=== PATIENT | female | born 1995 | race Caucasian/White ===

== ENCOUNTER 2022-10-20 10:46 | Emergency (ER) | payer OTHER, BC ==
[~2022-10-20] VITALS: Ht 170.2 cm; Wt 61.2 kg
[2022-10-20] MEDS ORDERED: CYCL10 PO ×2 (11:47→12:10)
[2022-10-20] MEDS ORDERED: Norco 5-325 Ta1 EACH PO ×2 (11:47→12:10)
== END 2022-10-20 12:16 | disposition home or self-care (01) ==
LOC: ER 10:46
DX: S16.1XXA Strain of muscle, fascia and tendon at neck level, initial encounter (principal); S29.012A Strain of muscle and tendon of back wall of thorax, initial encounter; V49.9XXA Car occupant (driver) (passenger) injured in unspecified traffic accident, initial encounter; Z88.2 Allergy status to sulfonamides
CPT/HCPCS: 96372; 99283-25; A9270; J1885

== ENCOUNTER 2022-11-12 19:26 | Emergency (ER) | payer OTHER, BC ==
[~2022-11-12] VITALS: Ht 170.2 cm; Wt 63.5 kg
[~2022-11-12 19:26] MED LIST: CYCL10 PO; Norco 5-325 Ta1 EACH PO
== END 2022-11-12 20:07 | disposition home or self-care (01) ==
LOC: ER 19:26
DX: S61.211A Laceration without foreign body of left index finger without damage to nail, initial encounter (principal); F17.200 Nicotine dependence, unspecified, uncomplicated; Z88.2 Allergy status to sulfonamides; W26.0XXA Contact with knife, initial encounter; Y99.0 Civilian activity done for income or pay
CPT/HCPCS: 12001; 99282-25

== ENCOUNTER 2022-12-23 11:58 | Emergency (ER) | payer OTHER, BC ==
[~2022-12-23] VITALS: Ht 170.2 cm; Wt 61.2 kg
[2022-12-23 12:14] VITALS: BP 144/97
== END 2022-12-23 13:05 | disposition home or self-care (01) ==
LOC: ER 11:58
DX: S46.001A Unspecified injury of muscle(s) and tendon(s) of the rotator cuff of right shoulder, initial encounter (principal); X50.0XXA Overexertion from strenuous movement or load, initial encounter; Z88.2 Allergy status to sulfonamides; F17.200 Nicotine dependence, unspecified, uncomplicated
CPT/HCPCS: J1885

== ENCOUNTER → 2023-09-15 | Outpatient (CLI) | payer OTHER ==
[2023-09-15 18:58] LABS: BASOPHILS ABSOLUTE AUTO 0.03 K/mm3 (0.00-0.23); BASOPHILS PERCENT AUTO 0 % (0-2); EOSINOPHILS ABSOLUTE AUTO 0.02 K/mm3 (0.00-0.68); EOSINOPHILS PERCENT AUTO 0 % (0-6); Hematocrit 39.8 % (33.0-51.0); Hemoglobin 13.6 g/dL (11.5-16.0); IMMATURE GRAN ABSOLUTE AUTO 0.01 K/mm3 (0.00-0.10); IMMATURE GRAN PERCENT AUTO 0 % (0-1); LYMPHOCYTES PERCENT AUTO 45 % (21-46); MONOCYTES ABSOLUTE AUTO 0.41 K/mm3 (0.16-1.47); MONOCYTES PERCENT AUTO 6 % (4-13); Mean Corpuscular HGB 29.4 pg (26.0-34.0); Mean Corpuscular HGB Conc 34.2 g/dL (31.5-36.5); Mean Corpuscular Volume 86 fL (80-100); Mean Platelet Volume 10.3 fL (9.1-12.4); NEUTROPHILS ABSOLUTE AUTO 3.28 K/mm3 (1.96-9.15); NEUTROPHILS PERCENT AUTO 48 % (41-73); Platelet Count 278 K/mm3 (150-400); RDW Coefficient Variation 11.5 % (11.7-14.2); Red Blood Cell Count 4.63 M/mm3 (3.80-5.20); White Blood Cell Count 6.85 K/mm3 (4.00-11.30)
[2023-09-15 19:42] LABS: Free Thyroxine 2.77 ng/dL (0.70-1.60); Thyroid Stimulating Hormone <0.005 uIU/mL (0.360-4.800); Triiodothyronine, Free 11.29 pg/mL (2.18-3.98)
[2023-09-17 08:12] LABS: BILIRUBIN, TOTAL 0.2 mg/dL (0.0-1.2); CALCIUM, SERUM 9.5 mg/dL (8.7-10.2); CREATININE, SERUM 0.58 mg/dL (0.57-1.00); GLOBULIN, TOTAL 2.3 g/dL (1.5-4.5); POTASSIUM, SERUM 4.1 mmol/L (3.5-5.2); PROTEIN, TOTAL, SERUM 6.8 g/dL (6.0-8.5)
== END ==
LOC: LAB SHORT 18:25 → LAB 18:25
PROVIDERS: Internal Medicine
DX: R68.89 Other general symptoms and signs (principal)
CPT/HCPCS: 80053; 84439; 84443; 84481; 85025

== ENCOUNTER → 2023-10-08 | Outpatient (CLI) | payer OTHER ==
[2023-10-16 01:50] LABS: HPV GENOTYPE 16 BY PCR Negative; HPV GENOTYPE 18 BY PCR Negative; HPV SOURCE Cervical; HPV, OTHER HIGH RISK BY PCR Negative
== END ==
LOC: LAB 17:04 → LAB SHORT 17:04
PROVIDERS: Internal Medicine
DX: Z00.00 Encounter for general adult medical examination without abnormal findings (principal)
CPT/HCPCS: 87624; 88142

== ENCOUNTER → 2023-12-01 | Outpatient (CLI) | payer OTHER ==
[2023-12-01 22:30] LABS: Free Thyroxine 1.75 ng/dL (0.70-1.60)
[2023-12-01 22:36] LABS: Thyroid Stimulating Hormone <0.005 uIU/mL (0.360-4.800)
[2023-12-04 14:14] LABS: TRIIODOTHYRONINE,TOTAL T3 TTL 217 ng/dL (80-200)
== END | disposition home or self-care (01) ==
LOC: LAB SHORT 16:54 → LAB 16:54
PROVIDERS: Internal Medicine
DX: E05.90 Thyrotoxicosis, unspecified without thyrotoxic crisis or storm (principal)
CPT/HCPCS: 84439; 84443; 84480